=== PATIENT | male | born 1990 | race Caucasian/White ===

== ENCOUNTER 2021-07-10 16:16 | Observation (INO) ==
[2021-07-10] MEDS ORDERED: SODIUM CHLORIDE 0.9% 1000ML 1,000 ML IV SCH (16:30)
[2021-07-10] MEDS ORDERED: ONDANSETRON INJ 2 MG/ML 2 ML VIAL IV STA ×2 (16:30→18:11)
[2021-07-10] MEDS ORDERED: EPINEPHrine INJ 1 MG/ML AMP IM STA (16:39)
[2021-07-10] MEDS ORDERED: dexAMETHasone**PF** 10 MG/ML VIAL IV STA (16:39)
[2021-07-10] MEDS ORDERED: diphenhydrAMINE 50 MG/ML VIAL IV STA ×3 (16:39→21:51)
[2021-07-10] MEDS ORDERED: FAMOTIDINE 20MG IV PUSH 20 MG/5 ML SYR IV STA (16:40)
--- NOTE | 2021-07-10 17:53 | Emergency Department Note ---
Impression & Plan Anaphylaxis ED Provider Note INFORMANT: Patient and ED PROVIDER(S): Mookie Ortega MD CHIEF COMPLAINT: Allergic reaction PLAN: Disposition: Discharge Condition: Good Outpatient prescription management: Prednisone, EpiPen Referral: PCP follow-up MEDICAL DECISION MAKING: Patient presented to emergency department acutely after eating nuts and experiencing allergic reaction-like symptoms. He was in some mild distress and was seen promptly. The patient did have swelling of the uvula and was nauseated. He was having some mild difficulty breathing. He was given IM epinephrine. He was placed on the cardiac nurse. The patient also received IV normal saline, IV Zofran, IV Pepcid, IV Benadryl, and IV Decadron. The patient was reassessed frequently and was feeling better. He was monitored. The patient had more nausea and was given additional dose of Zofran. He was m onitored. He noted improvement and then worsening of nausea. His uvular edema did improve. He was given a dose of Reglan and Benadryl. Patient was reassessed again and was feeling somewhat better regarding the nausea but then was feeling chilled. He developed erythroderma. The patient had some itching of his hands. At that point an additional dose of epinephrine was given. He had transient hypotension which resolved. Additional IV fluids were given. Patient was given albuterol nebulizer treatment. Another dose of IV Decadron was administered. He was still noting some symptoms. At this point he was improved but not back to a safe level of symptoms. I believe it is related to the amount of knots that he did consume. Further management in the hospital will be necessary. I discussed this with the patient's and patient. They were in agreement. Chest x-ray was unremarkable. Basic blood work showed a slight leukocytosis which I suspect is a stress response. Chemistry panel was unremarkable. Consultation was made with Dr. Jimmy Maldonado of the [facility] service. Patient was evaluated in the ER for further management. The patient was referred for follow-up for a recheck of the current condition. Triage Nursing notes reviewed and agree them. Vital Signs: reviewed and remarkable for no significant abnormalities Differential diagnosis: Allergic reaction, anaphylaxis, urticaria, Mejia-Chip syndrome, toxic epidermal necrolysis, erythema multiforme, contact dermatitis, cellulitis, as well as other pathologies. Diagnostics interpreted by me: ECG: none Cardiac Monitoring: Cardiac monitoring ordered by me: The patient was placed on continuous cardiac monitoring and observed. It revealed a normal sinus rhythm at 80 beats per minute without ectopy or evidence of dysrhythmia. Imaging studies: Deferred HPI: The patient is a 30 year old male who presents to the Emergency Room with complaints of allergic reaction. This started just prior to arrival and is from eating a dip that contained cashews. The patient is allergic to nuts. The patient also notes the following associated symptoms, swelling in the throat, mild difficulty breathing, nausea, epigastric abdominal pain, mild itching The patient has taken no medication for relieving factors. Current pain is rated as 4/10. pt denies LOC, headache, fevers, chills, diaphoresis, visual changes, neck pain, chest pain, breathing difficulties, back pain, melena, hematochezia, urinary symptoms, numbness, weakness, lymphadenopathy, rash, or other complaints. ROS: See above HPI for pertinent positives & negatives. A total of 10 systems reviewed and were otherwise negative. PAST MEDICAL HISTORY:See Below , tree nut allergy PAST SURGICAL HISTORY:See Below, hernia repair FAMILY HISTORY:See Below SOCIAL HISTORY:See Below, HOME MEDICATIONS:See Below ALLERGIES:See Below VITALS:See Below PHYSICAL EXAMINATION: GENERAL: Awake, alert, uncomfortable-appearing, in mild distress HENT: Normocephalic, atraumatic. Oropharynx examination revealed uvular edema. EYES: Normal conjunctiva. Sclera non-icteric. NECK: Inspection normal. Non-tender. Supple. No nuchal rigidity. FROM. No masses. RESPIRATORY: Clear to auscultation. No wheezes. No rales. Normal respiratory effort. CARDIAC: Normal rate. Normal rhythm. No murmurs. No rubs. Extremities warm and well perfused. Pulses equal. No JVD. GI: Soft, non-distended. Epigastric tenderness to palpation. No rebound or guarding. No masses. MUSCULOSKELETAL: Atraumatic. Chest examination reveals no tenderness. The back is symmetrical on inspection without obvious abnormality. There is no CVA tenderness to palpation. No joint edema. LOWER EXTREMITIES: Calves are equal size bilaterally and non-tender. No edema. No discoloration. NEURO: Normal sensorium. No sensory or motor deficits noted. SKIN: No rash or jaundice noted. CRITICAL CARE: I have personally spent greater than 80 minutes of critical care time in the direct management of this patient. This includes bedside care, interpretation of diagnostic studies, and testing, discussion with consultants, patient, and family members, and other required patient management activities. These minutes are in excess of all separately billable procedures. Mookie Ortega MD Past Med/Surg History Social History Smoking Status: Never smoker Feels Safe at Home: Yes Allergies Allergies Allergy/AdvReac Type Severity Reaction Status Date / Time banana Allergy throat Verified 07/10/21 17:46 itches Tree Nuts Allergy throat Uncoded 07/10/21 17:45 swells & itches, severe abd pain Home Meds Home Medications Medication Instructions Recorded Confirmed cetirizine 10 mg tablet (Zyrtec) 10 mg PO DAILY 07/10/21 07/10/21 Results & Data (ED) Vital Signs Vital Signs - 24 hr 07/10/21 16:17 07/10/21 16:23 07/10/21 16:30 Temperature 36.9 C Temperature Source Oral Pulse Rate 92 H Pulse Rate [Apical] Pulse Rate from SpO2 Sensor Respiratory Rate 18 Respiratory Effort / Characteristics Blood Pressure Blood Pressure Mean Pulse Oximetry 96 Oxygen Delivery Method Room Air Room Air Room Air Fraction of Inspired Oxygen Sepsis Recent Fever Within 48 Hours No Sepsis New/Unexplained Change in Mental Status N/A Sepsis Action Taken by Nursing No Action Required 07/10/21 16:39 07/10/21 17:00 07/10/21 17:30 Temperature Temperature Source Pulse Rate 69 56 L 61 Pulse Rate [Apical] Pulse Rate from SpO2 Sensor 66 51 L 64 Respiratory Rate 18 16 16 Respiratory Effort / Characteristics Blood Pressure 126/84 Blood Pressure Mean 98 Pulse Oximetry 97 100 99 Oxygen Delivery Method Fraction of Inspired Oxygen Sepsis Recent Fever Within 48 Hours Sepsis New/Unexplained Change in Mental Status Sepsis Action Taken by Nursing 07/10/21 18:00 07/10/21 18:41 07/10/21 19:00 Temperature Temperature Source Pulse Rate 74 90 78 Pulse Rate [Apical] Pulse Rate from SpO2 Sensor 73 88 80 Respiratory Rate 16 21 24 Respiratory Effort / Characteristics Blood Pressure 141/83 H Blood Pressure Mean 102 Pulse Oximetry 100 97 95 Oxygen Delivery Method Fraction of Inspired Oxygen Sepsis Recent Fever Within 48 Hours Sepsis New/Unexplained Change in Mental Status Sepsis Action Taken by Nursing 07/10/21 19:30 07/10/21 20:00 07/10/21 20:15 Temperature Temperature Source Pulse Rate 70 75 Pulse Rate [Apical] 86 Pulse Rate from SpO2 Sensor 70 74 Respiratory Rate 22 20 12 Respiratory Effort / Characteristics Non-Labored Spontaneous Blood Pressure Blood Pressure Mean Pulse Oximetry 93 91 98 Oxygen Delivery Method Room Air Fraction of Inspired Oxygen 21 Sepsis Recent Fever Within 48 Hours Sepsis New/Unexplained Change in Mental Status Sepsis Action Taken by Nursing 07/10/21 20:30 07/10/21 21:00 07/10/21 21:35 Temperature Temperature Source Pulse Rate 82 90 Pulse Rate [Apical] Pulse Rate from SpO2 Sensor 83 90 83 Respiratory Rate 27 H 18 Respiratory Effort / Characteristics Blood Pressure 125/78 Blood Pressure Mean 93 Pulse Oximetry 94 96 97 Oxygen Delivery Method Fraction of Inspired Oxygen Sepsis Recent Fever Within 48 Hours Sepsis New/Unexplained Change in Mental Status Sepsis Action Taken by Nursing Laboratory Data Result diagrams: 07/10/21 20:49 07/10/21 20:49 Lab Results 07/10/21 07/10/21 07/10/21 Range/Units 20:30 20:49 20:49 WBC 12.45 H (4.8-10.8) K/uL RBC 4.55 L (4.7-6.1) M/uL Hgb 14.8 (14.0-18.0) g/dL Hct 43.5 (42-52) % MCV 95.6 (80-100) fL MCH 32.5 (25-34) pg MCHC 34.0 (32-36) g/dL RDW Std Deviation 44.4 (36.4-46.3) fL RDW Coeff of Lalitha 12.8 (11.5-14.5) % Plt Count 293 (130-400) K/uL MPV 11.4 H (7.4-10.4) fL Immature Gran % (Auto) 0.2 % Neut % (Auto) 93.4 % Lymph % (Auto) 6.2 % [place] % (Auto) 0.2 % Eos % (Auto) 0.0 % Baso % (Auto) 0.0 % Neut # (Auto) 11.63 H (1.4-6.5) K/uL Lymph # (Auto) 0.77 L (1.2-3.4) K/uL [place] # (Auto) 0.03 L (0.11-0.59) K/uL Eos # (Auto) 0.00 (0-0.5) K/uL Baso # (Auto) 0.00 (0-0.2) K/uL Immature Gran # (Auto) 0.02 (0.00-0.02) K/uL Sodium 143 (136-145) mmol/L Potassium 4.1 (3.5-5.1) mmol/L Chloride 112 H (98-107) mmol/L Carbon Dioxide 23 (21-32) mmol/L Anion Gap 9.0 (3-11) BUN 16 (7-18) mg/dl Creatinine 1.35 (0.6-1.4) mg/dl Est Cr Clr Drug Dosing 86.2 ml/min Est GFR ( Amer) 79.9 ml/min Est GFR (Non-Af Amer) 69.0 ml/min BUN/Creatinine Ratio 11.7 (10-20) Glucose 181 H (70-99) mg/dl Calcium 8.1 L (8.5-10.1) mg/dl SARS-CoV-2, RNA, NAAT NEGATIVE (NEGATIVE) Administered Medications Discontinued Medications Albuterol (Albut/Ipratrop 3mg/0.5mg Neb 3 Ml Vial) 3 ml NEB NOW STA Stop: 07/10/21 20:23 Last Admin: 07/10/21 20:15 Dose: 3 ml Documented by: [id number] Dexamethasone Sodium Phosphate (DexamethasonePf 10 Mg/Ml Vial) 10 mg IV NOW STA Stop: 07/10/21 16:40 Last Admin: 07/10/21 16:33 Dose: 10 mg Documented by: [id number] Dexamethasone Sodium Phosphate (DexamethasonePf 10 Mg/Ml Vial) 6 mg IV NOW ONE Stop: 07/10/21 20:24 Last Admin: 07/10/21 20:29 Dose: 6 mg Documented by: [id number] Diphenhydramine HCl (Diphenhydramine 50 Mg/Ml Vial) 50 mg IV NOW STA Stop: 07/10/21 16:40 Last Admin: 07/10/21 16:33 Dose: 50 mg Documented by: [id number] Diphenhydramine HCl (Diphenhydramine 50 Mg/Ml Vial) 25 mg IV NOW STA Stop: 07/10/21 19:18 Last Admin: 07/10/21 19:21 Dose: 25 mg Documented by: [id number] Epinephrine HCl (Epinephrine Inj 1 Mg/Ml Amp) 0.3 mg IM NOW STA Stop: 07/10/21 16:40 Last Admin: 07/10/21 16:33 Dose: 0.3 mg Documented by: [id number] Epinephrine HCl (Epinephrine Inj 1 Mg/Ml Amp) Confirm Administered Dose 1 mg .ROUTE .STK-MED ONE Stop: 07/10/21 20:22 Last Admin: 07/10/21 20:24 Dose: 1 mg Documented by: [id number] Sodium Chloride (Nss 1000ml) 1,000 mls @ 999 mls/hr IV .Q1H1M LETTY Stop: 07/10/21 17:30 Last Infusion: 07/10/21 17:43 Dose: 0 mls/hr Documented by: [id number] Admin: 07/10/21 16:41 Dose: 999 mls/hr Documented by: [id number] Famotidine (Pepcid 20mg Iv Push) 20 mg in 5 mls @ 1 mls/min IV NOW STA Stop: 07/10/21 16:44 Last Admin: 07/10/21 16:33 Dose: 1 mls/min Documented by: [id number] Sodium Chloride (Nss 1000ml) 500 mls @ 999 mls/hr IV .Q31M ONE Stop: 07/10/21 21:04 Last Infusion: 07/10/21 21:10 Dose: 0 mls/hr Documented by: [id number] Admin: 07/10/21 20:38 Dose: 999 mls/hr Documented by: [id number] Ketorolac Tromethamine (Ketorolac Tromethamine 15 Mg/Ml Vial) 10 mg IV NOW ONE Stop: 07/10/21 18:12 Last Admin: 07/10/21 18:29 Dose: 10 mg Documented by: [id number] Metoclopramide HCl (Metoclopramide Hcl Inj 5 Mg/Ml 2 Ml Vial) 5 mg IV ONE ONE Stop: 07/10/21 19:17 Last Admin: 07/10/21 19:21 Dose: 5 mg Documented by: [id number] Ondansetron HCl (Ondansetron Inj 2 Mg/Ml 2 Ml Vial) 4 mg IV NOW STA Stop: 07/10/21 16:31 Last Admin: 07/10/21 16:33 Dose: 4 mg Documented by: [id number] Ondansetron HCl (Ondansetron Inj 2 Mg/Ml 2 Ml Vial) 4 mg IV NOW STA Stop: 07/10/21 18:12 Last Admin: 07/10/21 18:29 Dose: 4 mg Documented by: [id number] Imaging Data Radiologist's Impression: Chest X-Ray 07/10/21 20:42 XR chest 1V portable CLINICAL HISTORY: allergic reaction TECHNIQUE: Single frontal radiograph of the chest was obtained. Comparison: None available at the time of this dictation. FINDINGS: No lines and tubes are seen. The cardiomediastinal silhouette is normal. The lungs are clear. No evidence of pleural effusion or pneumothorax. IMPRESSION: No acute chest disease. ACT 112: Negative or not required by law. Electronically signed by: Joaquin Adhikari M.D. 07/10/2021 9:11 PM Discharge Plan Visit Data Chief Complaint: Allergic Reaction Stated Complaint: ALLERGIC RXN,SOB,THROAT FEELS LIKE CLOSING ED Provider: Mookie Ortega Discharge Problem: Anaphylaxis Discharge Instructions Interventions: ED Discharge Assessment Last Done: 07/10/21 22:49
[2021-07-10] MEDS ORDERED: KETOROLAC TROMETHAMINE 15 MG/ML VIAL IV ONE (18:11)
[2021-07-10] MEDS ORDERED: METOCLOPRAMIDE HCL INJ 5 MG/ML 2 ML VIAL IV ONE (19:16)
[2021-07-10] MEDS ORDERED: EPINEPHrine INJ 1 MG/ML AMP ONE (20:21)
[2021-07-10] MEDS ORDERED: ALBUT/IPRATROP 3MG/0.5MG NEB 3 ML VIAL NEB STA (20:22)
[2021-07-10] MEDS ORDERED: dexAMETHasone**PF** 10 MG/ML VIAL IV ONE (20:23)
[2021-07-10] MEDS ORDERED: SODIUM CHLORIDE 0.9% 1000ML 500 ML IV ONE (20:34)
[2021-07-10 20:58] LABS: Hematocrit (blood only) 43.5 % (42-52); Hemoglobin 14.8 g/dL (14.0-18.0); Immature Granulocytes # (auto) 0.02 K/uL (0.00-0.02); Immature Granulocytes % (auto) 0.2 %; Lymphocytes # (auto) 0.77 K/uL (1.2-3.4); Lymphocytes % (auto) 6.2 %; Mean Corpuscular Hemoglobin 32.5 pg (25-34); Mean Corpuscular Volume 95.6 fL (80-100); Mean Platelet Volume 11.4 fL (7.4-10.4); Monocytes # (auto) 0.03 K/uL (0.11-0.59); Monocytes % (auto) 0.2 %; Neutrophils # (auto) 11.63 K/uL (1.4-6.5); Neutrophils % (auto) 93.4 %; Platelet Count 293 K/uL (130-400); RDW Coefficient of Variation 12.8 % (11.5-14.5); RDW Standard Deviation 44.4 fL (36.4-46.3); Red Blood Count 4.55 M/uL (4.7-6.1); White Blood Count 12.45 K/uL (4.8-10.8)
--- NOTE | 2021-07-10 21:12 | XRay Report ---
XR chest 1V portable CLINICAL HISTORY: allergic reaction TECHNIQUE: Single frontal radiograph of the chest was obtained. Comparison: None available at the time of this dictation. FINDINGS: No lines and tubes are seen. The cardiomediastinal silhouette is normal. The lungs are clear. No evid ence of pleural effusion or pneumothorax. IMPRESSION: No acute chest disease. ACT 112: Negative or not required by law. Electronically signed by: Joaquin Adhikair M.D. 07/10/2021 9:11 PM
[2021-07-10 21:15] LABS: BUN Creatinine Ratio 11.7 (10-20); Calcium 8.1 mg/dl (8.5-10.1); Creatinine Clr Calc Pharmacy 86.2 ml/min; Est GFR (African American) 79.9 ml/min; Potassium 4.1 mmol/L (3.5-5.1)
--- NOTE | 2021-07-10 21:24 | History & Physical Report ---
Date of Service July 10, 2021 Assessment & Plan (1) Anaphylaxis: Plan: Patient is a 30 year old male with 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 Anaphylaxis secondary to consumption of Tree nuts -Patient with known history of anaphylaxis to tree nuts with last need for epinephrine in 2013 after eating a power bar -Does not carry an epi pen with him as he did not previously have insurance and feels that it is fairly easy to avoid -- would recommend epi pen to keep on hand at discharge -Consumed roughly 1/4-1/2 cup of vegan buffalo chicken dip containing cashews at 16:00 on 07/10/21 -In the ED patient received Epinephrine IM x2, Dexamethasone 16mg total IV, Diphenhydramine 75mg total IV, Famotidine 20mg IV, Toradol 10mgIV, Metoclopramide 5mg IV, NSS 2L bolus, Zofran 8mg total IV -Will check Tryptase level, though slightly out of the 4 hour range -Continue NSS 125ml/hr x2L -Continue Diphenhydramine 50mg q6h IV x4 doses -Continue Famotidine 20mg IV BID -Will hold on further steroids at this time -Will keep IM Epinephrine at the bedside PRN q3h, if symptoms continue or if hypotension presents itself, consider epinephrine gtt. 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 Patient notes that he was out tailgating and was eating a vegan buffalo chicken dip that he later found out contained cashews. 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 He notes that his symptoms started initially with a scratchy throat, nausea, and abdominal pain and tightness. He notes that this progressed in the ED to some throat and eye swelling, palm and sole rash and itching. He notes his symptoms have improved a fair amount since administration of epinephrine, antihistamines, and antiemetics, though he still continues to have some blurry vision, nausea, and chills. He denies any SOB, chest pain, current abdominal pain, fever, diarrhea, vomiting. He notes that his allergies include cashews, walnuts, pecans, and pistachios. Med Hx: Allergy to tree nuts Surg Hx: R inguinal hernia repair 2012 Soc Hx: Denies tobacco or illicit drug use. Notes 1 alcoholic beverage/month Allergies Allergy/AdvReac Type Severity Reaction Status Date / Time cashew nut Allergy Severe throat Verified 07/11/21 13:31 swells & itches, severe abd pain banana Allergy throat Verified 07/10/21 17:46 itches Home Medications Medication Instructions Recorded Confirmed Type cetirizine 10 mg tablet (Zyrtec) 10 mg PO DAILY 07/10/21 07/10/21 History Past Med/Surg History Social History Smoking Status: Never smoker Second Hand Exposure: No; Do You Dip or Chew Tobacco: No; Hx Alcohol Use: Yes Alcohol type: beer Hx Substance Use: No Preferred Language: Nigerian Communication Ability: Effective [employer] Reading Teacher Required: No Beliefs That Will Affect Care: None Current Living Situation: Spouse Other Information That Helps Us Care for You: No Feels Safe at Home: Yes Safety Concerns: Feels Safe At This Time Assistive Devices: None Review of Systems Review of Systems: All systems reviewed & are unremarkable except as noted in Subjective Physical Exam Constitutional: well developed, well nourished, cooperative and + in distress Eyes: PERRL, conjunctivae normal, anicteric sclerae ENMT: external ear and nose normal, oropharynx normal (no uvular swelling noted at this time ) Neck: trachea midline, no thyromegaly Respiratory: normal respiratory effort, lungs clear to auscultation Cardiovascular: RRR, no murmur, no edema Gastrointestinal (Abdomen): Inspection/Auscultation: abdomen normal to inspection and normal bowel sounds; abdomen not distended Percussion/Palpation: + abdomen tender (mild TTP diffusely) and abdomen soft; no guarding and abdomen not rigid Musculoskeletal: no cyanosis or clubbing, extremities motor strength 5/5 Skin: + rash (slight erythema of palms, none noted on soles of feet ) Neurologic: PERRL, EOMI, accommodation nl, no face palsy, no dysarthria Psychiatric: Orientation: alert and oriented x 3 Eye Contact: + fair eye contact Affect: + anxious affect Lymphatic: no cervical or axillary lymphadenopathy Results & Data Results & Data ([facility]) Vital Signs (Past 12 Hours) Vital Signs Temp Pulse Pulse Resp BP Pulse Ox 07/10/21 20:15 86 12 98 07/10/21 17:30 61 16 99 07/10/21 17:00 56 L 16 126/84 100 07/10/21 16:39 69 18 97 07/10/21 16:23 36.9 C 92 H 18 96 Supervising Physician Co-Signing Physician Notes Attending addendum: I have physically seen this patient, have supervised the medical residents activities, and agree with the H&P unless as otherwise noted. Assessment and Plan: Anaphylaxis to nuts- received 2 episodes epinephrine IM, dexamethasone 16 mg IV total, diphenhydramine 75 mg IV total, famotidine 20 mg IV, Toradol 10 mg IV, metoclopramide 5 mg IV, normal saline 2 L bolus and Zofran 8 mg IV admit to monitored bed diphenhydramine 50 mg IV every 6 hours famotidine 20 mg IV twice daily dexamethasone 6 mg IV every 6 hours keep epinephrine IM at bedside if symptoms worsen and/or becomes hypotensive, will place on epinephrine drip, and admit to the ICU patient is advised to carry an EpiPen with him for future reference Remaining orders as noted above Resident Activity Tracking Resident Involvement: Resident Care Provided Care Provided: Adult Hospital Medicine
[2021-07-10] MEDS ORDERED: EPINEPHrine INJ 1 MG/ML AMP IM PRN (21:51)
[2021-07-10] MEDS ORDERED: ONDANSETRON INJ 2 MG/ML 2 ML VIAL IV PRN (22:48)
[2021-07-10] MEDS ORDERED: ACETAMINOPHEN 325 MG TAB PO PRN (22:48)
[2021-07-10] MEDS ORDERED: ALBUTEROL HFA 8 GM INHALER INH PRN (22:48)
[2021-07-10] MEDS ORDERED: FAMOTIDINE 20 MG in SYRINGE 3 ML IV ONE (23:00)
[2021-07-11] MEDS: SODIUM CHLORIDE 0.9% 1000ML 1,000 ML IV SCH ×2 (00:05→06:31)
[2021-07-11] MEDS: diphenhydrAMINE 50 MG/ML VIAL IV SCH ×3 (00:06→12:34)
[2021-07-11 06:42] LABS: Basophils # (auto) 0.01 K/uL (0-0.2); Basophils % (auto) 0.1 %; Hematocrit (blood only) 39.1 % (42-52); Hemoglobin 13.1 g/dL (14.0-18.0); Immature Granulocytes # (auto) 0.03 K/uL (0.00-0.02); Immature Granulocytes % (auto) 0.2 %; Lymphocytes # (auto) 0.51 K/uL (1.2-3.4); Lymphocytes % (auto) 3.4 %; Mean Corpuscular Hemoglobin 32.3 pg (25-34); Mean Corpuscular Hgb Conc 33.5 g/dL (32-36); Mean Corpuscular Volume 96.5 fL (80-100); Mean Platelet Volume 11.2 fL (7.4-10.4); Monocytes # (auto) 0.76 K/uL (0.11-0.59); Neutrophils % (auto) 91.3 %; Platelet Count 228 K/uL (130-400); RDW Standard Deviation 45.7 fL (36.4-46.3); Red Blood Count 4.05 M/uL (4.7-6.1); White Blood Count 15.11 K/uL (4.8-10.8)
[2021-07-11 07:48] LABS: BUN Creatinine Ratio 15.5 (10-20); Calcium 8.5 mg/dl (8.5-10.1); Creatinine Clr Calc Pharmacy 91.7 ml/min; Est GFR (African American) 86.1 ml/min; Est GFR (Non-African American) 74.3 ml/min; Potassium 5.1 mmol/L (3.5-5.1)
[2021-07-11] MEDS ORDERED: FAMOTIDINE 20 MG in SYRINGE 3 ML IV SCH (11:00)
[2021-07-11] MEDS ORDERED: EPINEPHrine ADULT AUTO-INJECT 0.3 MG SYR IM STA (13:24)
--- NOTE | 2021-07-11 13:54 | Hospitalist Progress Note ---
Date of Service July 11, 2021 Assessment & Plan (1) Anaphylaxis: Plan: Patient is a 30 year old male with 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 Anaphylaxis secondary to consumption of Tree nuts * Consumed roughly 1/4-1/2 cup of vegan buffalo chicken dip containing cashews at 16:00 on 07/10/21 * ED course: Epinephrine IM x2, Dexamethasone 16mg total IV, Diphenhydramine 75mg total IV, Famotidine 20mg IV, Toradol 10mgIV, Metoclopramide 5mg IV, NSS 2L bolus, Zofran 8mg total IV * Tryptase level ordered, pending * NSS 125ml/hr x2L * Diphenhydramine 50mg q6h IV x4 doses; Famotidine 20mg IV BID * Consider additional if patient's respiratory status declines; otherwise, holding steroids. * IM Epinephrine at the bedside PRN q3h; consider epinephrine GTT if symptoms continue/worsen or hypotension occurs * Patient tolerated advancement to clear liquid diet; diet advanced to regular * Anticipate discharge pending successful trial of regular diet. * Dispo: PCU for close hemodynamic monitoring FEN: Regular diet, NSS 125ml/hr x2L DVT: SCDs Code: Full Admission and Anticipated Discharge Date Admission Date: July 10, 2021 Subjective Patient was asleep in bed comfortably this morning. Corroborated HPI. Denies shortness of breath, chest pain, wheezing, or dizziness this morning. Patient wants to know when he can advance from sips and chips to regular diet. Otherwise, no other complaints. Review of Systems Constitutional: as per Subjective / HPI Physical Exam Constitutional: WD/WN, vitals as above ENMT: Mouth: + lip abnormality (Mildly swollen) Respiratory: normal respiratory effort, lungs clear to auscultation Cardiovascular: RRR, no murmur, no edema Extremities: no pedal edema Results & Data Results & Data ([facility]) Vital Signs (Past 12 Hours) Vital Signs Pulse Resp BP Pulse Ox 07/11/21 06:30 46 L 17 96 07/11/21 06:00 38 L 14 97 07/11/21 05:30 44 L 18 96 11/21/21 05:00 60 18 97 07/11/21 04:30 73 20 96 07/11/21 04:00 82 21 109/53 L 98 07/11/21 03:30 74 16 97 07/11/21 03:00 83 17 98 07/11/21 02:30 82 18 96 07/11/21 02:00 72 20 95
--- NOTE | 2021-07-11 16:45 | Discharge Summary ---
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 Patient notes that he was out tailgating and was eating a vegan buffalo chicken dip that he later found out contained cashews. 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 He notes that his symptoms started initially with a scratchy throat, nausea, and abdominal pain and tightness. He notes that this progressed in the ED to some throat and eye swelling, palm and sole rash and itching. He notes his symptoms have improved a fair amount since administration of epinephrine, antihistamines, and antiemetics, though he still continues to have some blurry vision, nausea, and chills. He denies any SOB, chest pain, current abdominal pain, fever, diarrhea, vomiting. He notes that his allergies include cashews, walnuts, pecans, and pistachios. Med Hx: Allergy to tree nuts Surg Hx: R inguinal hernia repair 2012 Soc Hx: Denies tobacco or illicit drug use. Notes 1 alcoholic beverage/month Admission Exam Per Admitting Provider Constitutional: well developed, well nourished, cooperative and + in distress Eyes: PERRL, conjunctivae normal, anicteric sclerae ENMT: external ear and nose normal, oropharynx normal (no uvular swelling noted at this time ) Neck: trachea midline, no thyromegaly Respiratory: normal respiratory effort, lungs clear to auscultation Cardiovascular: RRR, no murmur, no edema Gastrointestinal (Abdomen): Inspection/Auscultation: abdomen normal to inspection and normal bowel sounds; abdomen not distended Percussion/Palpation: + abdomen tender (mild TTP diffusely) and abdomen soft; no guarding and abdomen not rigid Musculoskeletal: no cyanosis or clubbing, extremities motor strength 5/5 Skin: + rash (slight erythema of palms, none n oted on soles of feet ) Neurologic: PERRL, EOMI, accommodation nl, no face palsy, no dysarthria Psychiatric: Orientation: alert and oriented x 3 Eye Contact: + fair eye contact Affect: + anxious affect Lymphatic: no cervical or axillary lymphadenopathy Principal Diagnosis Anaphylaxis secondary to consumption of tree nut (cashew). Discharge Exam Constitutional WD/WN, vitals as above ENMT Mouth: + lip abnormality (Mildly swollen) Respiratory normal respiratory effort, lungs clear to auscultation Cardiovascular RRR, no murmur, no edema Extremities: no pedal edema Gastrointestinal (Abdomen) normal bowel sounds, soft, nontender, no hepatosplenomegaly Discharge Data Allergies Allergy/AdvReac Type Severity Reaction Status Date / Time cashew nut Allergy Severe throat Verified 07/11/21 13:31 swells & itches, severe abd pain banana Allergy throat Verified 07/10/21 17:46 itches Consultations 07/10/21 20:42 ED Decision to Admit Stat Hospital Course (1) Anaphylaxis: Patient is a 30 year old male with 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 Anaphylaxis secondary to consumption of Tree nuts * Has known h/o allergy to cashews * Consumed roughly 1/4-1/2 cup of vegan buffalo chicken dip containing cashews at 16:00 on 07/10/21 * ED course: Epinephrine IM x2, Dexamethasone 16mg total IV, Diphenhydramine 75mg total IV, Famotidine 20mg IV, Toradol 10mgIV, Metoclopramide 5mg IV, NSS 2L bolus, Zofran 8mg total IV * Received NSS 125ml/hr x2L * Diphenhydramine 50 mg q6h IV x4 doses; Famotidine 20mg IV BID * Held steroids, as patient's respiratory status stabilized; did not require for rest of hospital stay. * IM Epinephrine at the bedside PRN q3h; consider epinephrine GTT if symptoms continue/worsen or hypotension occurs * Patient tolerated advancement to clear liquid diet; diet advanced to regular, which she tolerated. * Patient unable to secure home EpiPen as his insurance would not cover; pharmacy provided 1 EpiPen 0.3 mg, sent down to the ED pharmacy to be provided to him at discharge. Total Time Total Time Spent Total Time Spent (In Minutes): 10 Discharge Plan Discharge Items Patient Disposition: Home - Self-Care Reason For Visit: ALLERGIC RXN,SOB,THROAT FEELS LIKE CLOSING Discharge Diagnosis: Anaphylaxis secondary to consumption of tree nut (cashews). Activity: Per Instructions section Non-emergency contact: Primary Care Provider Call non-emergency contact if: your symptoms worsen Follow-up/Referrals: Anirudh Zamora MD [Primary Care Provider] - Diet: Regular and Other - See Diet Comment Diet Comment: Take precautions to avoid consuming tree nuts (cashew, peanut, walnut, etc) Addtl Attending Provider Instructions: You were admitted to the hospital for anaphylaxis. You were treated with IV fluids, steroids, epinephrine, and antihistamines. A discharge summary will be sent to your primary care physician to ensure continuity of care. Please bring this discharge summary with you to your next office appointment so that your provider can review it at that time. Follow-up appointments: Make a follow-up appointment with your PCP within the next week. It is very important that you follow up with them shortly after discharge from the hospital. Keep all your follow-up appointments as already scheduled. If you cannot make an appointment, notify your provider. Medications: Your medication list has been reviewed and reconciled upon discharge to ensure accuracy and continuity of care. An updated list of all your medications is included with your hospital discharge paperwork. Please review this list closely, and make note of any changes. * We are sending you home today with an EpiPen. Inject into arm or leg as needed for anaphylaxis. Take your medications as instructed; do not skip a dose of your medicines. Make sure all of your doctors know every medicine you are taking (including [id number] medicines, vitamins, and supplements). Call your primary care provider before taking any new medicines (including [id number] medicines, vitamins, and supplements), because some of these may interact with your current medications, or may make your symptoms worse. Tell your primary care provider if you cannot afford your medications. CONTACT YOUR PRIMARY CARE PROVIDER if you experience any of the following: Trouble breathing(wheezing or shortness of breath) Sudden swelling of your lips, eyes , or face following consumption of food, or other edible product. Difficulty following your treatment plan, or difficulty taking medications CALL 911 OR GO TO THE EMERGENCY DEPARTMENT if you experience any of the following: Sudden, severe abdominal pain or nausea/vomiting Severe chest pain, or chest pain that radiates (moves) to your jaw or arm Sudden, severe shortness of breath or difficulty breathing Thank you for allowing us to participate in your care. Pending Studies at Discharge: No Stand-Alone Forms: My [facility], Smoking Cessation Medications and DC Order Prescriptions: Continued cetirizine [Zyrtec] 10 mg Tablet 10 mg PO DAILY RF: 0 Discharge Orders: Discharge Order (Routine); Ordered 07/11/21 Ordered By: Gerardo Larson/Other Patient Handouts: Anaphylactic Shock Dc, ED Anaphylaxis, ED Using an Injection Pen Admission Data Admit Date/Time: 07/10/21 21:51 Attending Provider: Evelyne Matias Admit Provider: Stefano Zimmerman Primary Care Provider: Anirudh Zamora Other Providers: Jimmy Maldonado Other Interventions: Discharge Summary Assessment (RN) Last Done: 07/11/21 17:23 Supervising Physician Co-Signing Physician Notes Resident Physician Supervision Note: I independently interviewed and examined the patient and verified the cervantes history and physical, reviewed labs and image studies and agree with resident Dr. Piper findings and care plan. Resident Activity Tracking Resident Involvement: Resident Care Provided Care Provided: Adult Hospital Medicine
--- NOTE | 2021-07-11 23:09 | Billing Data ---
Date of Service July 11, 2021 Coding Level of Care Code INT OBSERVATION CARE 70M LVL 3
== END 2021-07-11 17:25 | disposition home or self-care (01) ==
LOC: EDINP 16:16 → ED 16:16 → SUATTDRO 21:51 → EDINP 22:49